=== PATIENT | female | born 1995 ===

== ENCOUNTER → 2019-11-28 12:55 | Outpatient (CLI) | payer OTHER, SELFPAY ==
--- NOTE | ~2019-11-28 | CT_ITS ---
EXAMINATION: CT chest wo con EXAM DATE: 11/28/2019 13:12 INDICATION: Follow-up lung nodule seen on CT at outside facility. TECHNIQUE: Spiral CT of the chest without contrast. Axial, coronal and sagittal images were reviewe d. Coronal maximum intensity pixel images of chest reviewed. The dose-length product (DLP) for this examination was 157.30 mGy-cm. The exposure was tailored according to patient size (auto mA exposur e control), and iterative reconstruction (ASIR) was used as additional dose reduction technique. The re is no prior study for comparison. FINDINGS: There is a 3 mm nodule at the left lung base most likely noncalcified granuloma. Uncertain whether or not this was the nodule in question without prior study. Regardless, there are no suspici ous pulmonary nodules. There are no pleural or pericardial effusions. Tracheobronchial tree is patent. There is no media stinal, hilar or axillary lymphadenopathy. There is no pneumothorax. Heart normal in size. No e vidence of coronary arterial calcification. Upper abdomen is unremarkable. There is thoracic spond ylosis without osteoblastic or osteolytic lesions identified. IMPRESSION: Left basilar nodule most likely noncalcified granuloma. Reviewed, dictated and finalized at location A.
== END ==
PROVIDERS: PCP Family Medicine; Visit Provider Family Medicine
DX: R91.1 Solitary pulmonary nodule (principal); R91.8 Other nonspecific abnormal finding of lung field
CPT/HCPCS: 71250

== ENCOUNTER → 2022-10-27 14:36 | Outpatient (CLI) | payer OTHER, SELFPAY ==
--- NOTE | ~2022-10-27 | XR_ITS ---
EXAMINATION: XR ankle LT min 3V DATE: 10/27/2022 15:03 INDICATION: Left ankle injury, initial encounter. TECHNIQUE: 5 views of left ankle were obtained. COMPARISON: Left ankle radiographs 07/10/2011 FINDINGS: Bone alignment is normal. No fracture. There is mild osteoarthritis of talonavicular joint. There is an enthesophyte at posterior aspect of calcaneal tuberosity. IMPRESSION: 1. No fracture. Reviewed, dictated and finalized at location E. IMPRESSION: 1. No fracture.
== END ==
PROVIDERS: PCP Family Medicine; Visit Provider Family Medicine
DX: S99.912A Unspecified injury of left ankle, initial encounter (principal); X58.XXXA Exposure to other specified factors, initial encounter
CPT/HCPCS: 73610

== ENCOUNTER 2025-02-05 22:16 | Emergency (ER) | payer BC, SELFPAY ==
--- NOTE | ~2025-02-05 | XR_ITS ---
EXAMINATION: XR wrist RT min 3V DATE: 02/05/2025 23:05 INDICATION: Right wrist injury TECHNIQUE: Posteroanterior, ulnar deviation, oblique, and lateral views of the right wrist were obtained. COMPARISON: none FINDINGS: Alignment is normal. No fracture. Joint spaces are normal. Soft tissues are unremarkable. IMPRESSION: 1. Negative right wrist radiographs. Reviewed, dictated and finalized at location A. K GUARD
[2025-02-05 22:18] VITALS: BP 148/82; PULSE 101; RESP 20; TEMP 36.8; O2SAT 100
--- OUTSIDE RECORDS SUMMARY | 2025-02-05 22:18 | XMS_ITS | Clinical Summary ---
Author Organization [facility] Address [address] [place] [id number] Care Team Providers Care Director Of Dietary Name Role Phone Sharon Banks MD Primary Care Provider [phone] Social History Tobacco Use Types Packs/Day Years Used Date Smoking Tobacco: Never Assessed Comments Unknown Sex and Gender Information Value Date Recorded Sex Assigned at Not on file Legal Sex Female 7:13 PM CDT Gender Identity Not on file Sexual Orientation Not on file Plan of Treatment Health Maintenance Due Date Last Done Comments Cervical Cancer Screening Pa p Smear (Age 30 to 64) Every 3 Years 1993 Annual Physical 02/21/1996 Hepatitis C 2011 DTaP, Tdap and Td Vaccines ( 1 - Tdap) 02/21/2012 Hepatitis B Vaccines (1 of 3 - 19+ 3-dose series) 02/21/2012 HPV Vaccines (1 - 3-dose SCD M series) 02/21/2020 Cervical Cancer Screening Pa p with HPV Testing (Age 30 to 64) Every 5 Years 2023 Cervical Cancer Screening with HPV 2023 COVID-19 Vaccine ( - 2024-2 6 season) 2024 Influenza Adult (#1) 2024 Hepatitis A Vaccines Aged Out No long er eligible based on patient's age to complete this topic Meningococcal B Vaccine Aged Out No l onger eligible based on patient's age to complete this topic Meningococcal Vaccine Aged Out No garret jovita eligible based on patient's age to complete this topic Pneumococcal Vaccine: Pediat rics (0 to 5 Years) and At-Risk Patients (6 to 49 Years) Aged Out No longer eligible b ased on patient's age to complete this topic RSV Immunizations Under 20 Months Aged Out No longer eligible based on patient's age to complete this topic Care Teams Director Of Dietary Relationship Specialty Start Date End Date Sharon Banks MD [facility] - General 08/27/11
--- NOTE | 2025-02-06 01:43 | ED_ITS ---
HPI - Extremity Injury (Upper) General Chief Complaint: Extremity Injury, Upper Stated Complaint: R wrist injury Time Seen by Provider: 02/05/25 23:49 History of Present Illness HPI narrative: Patient is a 29-year-old female who presents to the ER with right wrist pain. She reports she was playing volleyball when someone spike the ball and it hit her in her right wrist. Patient reports she believes her wrist was hyperextended. She endorses full range of motion although she has increased pain with extension and flexion. Patient endorses a history of hypothyroidism. She denies any elbow injury, knuckle injury, snuffbox tenderness or finger injury. Related Data Allergies Allergy/AdvReac Type Severity Reaction Status Date / Time No Known Allergies Allergy Verified 09/27/14 13:26 Review of Systems Review of Systems: All systems reviewed & are unremarkable except as noted in HPI and below Exam Narrative: GENERAL: Well appearing, well-nourished, non-toxic, in no acute distress. HEAD: Normocephalic, atraumatic. NECK: Supple. No adenopathy, no masses. RESPIRATORY: Airway patent, respirations nonlabored. Clear to auscultation bilaterally, no rales, rhonchi, wheezing. CARDIOVASCULAR: Regular rate and rhythm without murmurs, rubs, or gallops. Peripheral pulses 2+ and equal bilaterally. ABDOMINAL: Soft, nontender, nondistended, no hepatosplenomegaly. Normoactive BS. MUSCULOSKELETAL: Moves all extremities. Strength/ROM intact without gross deformities. Right dorsal wrist swelling and tenderness. Negative snuffbox tenderness. SKIN: Warm, dry, normal color. No rashes. NEURO: A&O X3. Speech clear. Cranial nerves II-XII intact. No ataxic movements. PSYCHIATRIC: Appropriate mood and affect. Normal interaction. Course Vital Signs Vital signs: Vital Signs Temperature 36.8 C 02/05/25 22:18 Pulse Rate 101 H 02/05/25 22:18 Respiratory Rate 20 02/05/25 22:18 Blood Pressure 148/82 H 02/05/25 22:18 Pulse Oximetry 100 02/05/25 22:18 Temperature 36.8 C 02/05/25 22:18 Pulse Rate 101 H 02/05/25 22:18 Respiratory Rate 20 02/05/25 22:18 Blood Pressure 148/82 H 02/05/25 22:18 Pulse Oximetry 100 02/05/25 22:18 Procedures Orthopedic Splinting/Casting Injury #1: Splinting/Casting Date: 02/06/25 Splinting/Casting Time: 01:52 Side: right Upper Extremity Injury Location: wrist Upper Extremity Immobilizer: wrist splint Splint: customized in ED OCL: volar Pre-Procedure Neuro Vascular Exam: normal Post-Procedure Neuro Vascular Exam: normal MDM MDM Narrative Medical decision making narrative: Patient is a 29-year-old female who presents to the ER with right wrist pain. She reports she was playing volleyball when someone spike the ball and it hit her in her right wrist. Patient reports she believes her wrist was hyperextended. She endorses full range of motion although she has increased pain with extension and flexion. Patient endorses a history of hypothyroidism. She denies any elbow injury, knuckle injury, snuffbox tenderness or finger injury. Patient Education/Shared MDM: Results of imaging shared with patient. She declines pain medication administration here in the ER. Patient was offered an Oli wrap or OCL splint to with comfort and immobilization. She opted to have it was heel splint placed. Patient strongly advised to keep her splint on for the next 3-5 days. Once she removes it if she still experiencing significant pain then she needs to follow-up with orthopedic surgery. Patient will not be discharged home with any new prescriptions. She may use Tylenol and/or ibuprofen for pain control. Strict return precautions provided. Patient verbalized understanding and is in agreement with plan. Vital signs stable at time of discharge. All questions answered. Differential Diagnosis Differential Diagnosis: Scaphoid fracture, right wrist sprain, right wrist strain Imaging Data Attestation: I personally reviewed and interpreted this imaging study as follows: Radiologist's impression: Edema. No acute displaced fracture seen. Consider CT if there is further concern Discharge Plan Discharge Clinical Impression: Sprain and strain of wrist, Acute pain of right wrist Patient Disposition: Home Condition: Stable Instructions: Antibiotic Form, Splint Care (ED), P.R.I.C.E. Treatment (ED) Additional Instructions: Please return to the ER with any worsening symptoms. Follow-up with Orthopedic surgery and 3-5 days if your pain has not improved. Please keep your splint on for at least 3 days to help with swelling and immobilization. Take all medications as prescribed, including regularly scheduled medications. You may take Tylenol and/or ibuprofen for pain control. Please ice the site every 2-3 hours for 20 minutes. Patient Language: Salvadorean Follow-up/Referrals: Armando Yang MD [Physician, Orthopedics] Sal,Rachel Cagle NP [Primary Care Provider, Unknown] Stand Alone Forms: Work/School Release IP Time of Disposition: 01:58
[2025-02-06 04:02] VITALS: BP 146/80; PULSE 99; RESP 18; TEMP 36.9; O2SAT 99
== END 2025-02-06 04:04 | disposition home or self-care (01) ==
PROVIDERS: Emergency Provider Registered Nurse; PCP Nurse Practitioner Family
DX: S63.501A Unspecified sprain of right wrist, initial encounter (principal); W21.06XA Struck by volleyball, initial encounter
CPT/HCPCS: 29125; 73110; 99284